=== PATIENT | male | born 1940 | race Caucasian/White ===

== ENCOUNTER 2016-07-08 06:06 | Inpatient (IN) | payer OTHER ==
[2016-06-25 10:14] LABS: WBC (NOT ORDERED) (RFLEX) 0 (0-5)
[2016-06-25 10:49] LABS: BASOPHILS 1.5 %; BASOPHILS ABSOLUTE 0.07 10/3/uL (0.0-0.16); EOSINOPHILS 4.2 %; HEMATOCRIT 46.2 % (40.0-51.0); HEMOGLOBIN 15.4 g/dL (13.6-17.8); LYMPHOCYTES 23.3 %; MEAN CORPUS HGB CONC 33.3 g/dL (32.0-36.0); MEAN CORPUSCULAR HEMOGLOB 30.7 pg (26.0-34.0); MEAN PLATELET VOLUME 9.5 fL (9.2-13.0); MONOCYTES 10.6 %; NEUTROPHILS 60.4 %; NEUTROPHILS ABSOLUTE 2.86 10/3/uL (2.02-8.40); PLATELET COUNT 202 10/3/uL (150-400); RBC DISTRIBUTION WIDTH 13.9 % (12.0-16.0); RED CELL COUNT 5.02 10/6/uL (4.7-6.1); WHITE BLOOD CELLS 4.7 10/3/uL (4.5-10.5)
[2016-06-25 10:51] LABS: MANUAL DIFF NO %
[2016-06-25 11:01] LABS: A/G RATIO 1.2 (0.7-1.9); ALBUMIN 3.9 G/DL (3.5-5.0); CALCIUM, SERUM 8.8 MG/DL (8.5-10.4); CHLORIDE, SERUM 110 MMOL/L (96-112); CO2 (CARBON DIOXIDE) 29 MMOL/L (24-34); CREATININE 0.92 MG/DL (0.70-1.30); GFR AFRICAN AMERICAN 95 ML/MIN (>=60); GFR NON AFRICAN AMERICAN 82 ML/MIN (>=60); GLOBULIN 3.2 G/DL (2.5-4.1); POTASSIUM, SERUM 4.1 MMOL/L (3.5-5.3); SGOT(AST) 14 U/L (5-40); SGPT(ALT) 26 U/L (5-65); SODIUM, SERUM 145 MMOL/L (135-148); TOTAL PROTEIN 7.1 G/DL (6.0-8.5)
[2016-06-25 11:03] LABS: ALKALINE PHOSPHATASE 78 U/L (45-117); BUN (BLOOD UREA NITROGEN) 13 MG/DL (6-23); GLUCOSE, SERUM 91 MG/DL (60-99); INTERNATIONAL NORMAL RATI 1.1 UNITS (-); PARTIAL THROMBO TIME 27.4 SEC (22.5-37.2); PROTIME (NOT ORD) 13.9 SEC (12.0-14.5); TOTAL BILIRUBIN 0.8 MG/DL (0-1.2)
[2016-06-25 12:06] LABS: ASCORBIC ACID (UR NOT ORDER) NEG (NEG); BILIRUBIN, URINE NEGATIVE (NEG); KETONE, URINE NEGATIVE (NEG); LEUKOCYTE ESTERASE(NOT OR NEG (NEG)
--- NOTE | ~2016-07-08 | OP ---
Record Of Operation [facility] [address] [place]. 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 PROCEDURE PERFORMED: Right total knee arthroplasty. SUPERVISING LAW ENFORCEMENT ANALYST: Boaz Jordan. ANESTHESIA: Spinal with sedation, adductor block, and local infusion. PROCEDURE IN DETAIL: The patient is clearly identified and after obtaining informed consent is brought to the operating room at [facility] where anesthesia is induced uneventfully with excellent anesthetic effect. Subsequently, the affected extremity is prepped and draped in the usual manner and after an appropriate time-out procedure is performed, via an anterior approach, the skin is divided, fascial planes are elevated, paramedial approach to the knee is made. The structures themselves are elevated, excised, and debrided were appropriate, whereupon the patella is carefully everted, calipered, and planed and with the size and type being reproduced with the appropriate-size patella, trialing is performed successfully. At this point, the patella is then carefully subluxed laterally, the knee is flexed, osteophytes around the distal femur are removed, followed by the ACL being divided. The femoral canal is entered and vented, at which point with the intramedullary guide being utilized, the distal femoral cut is made. At this point, the tibia is carefully subluxed anteriorly. The surrounding soft tissues to the tibia are protected with Hohmann retractors, at which point the extramedullary guide is utilized to perform the proximal tibial cut and after cleansing these tissues, the spacer block is utilized in extension to confirm excellent extension, stability, and alignment. The guiding pins are then all carefully removed and the knee is then flexed. The femur is sized, whereupon the anterior, posterior, chamfer, and box cuts are made appropriately. The proximal tibia then is assessed. Osteophytes and surrounding soft tissues are removed and debrided were appropriate. Posterior osteophytes are removed as well. The menisci are excised and thus concluding trialings performed successfully. The proximal tibia then is carefully prepared utilizing proper cement technique. The permanent implants have been carefully placed into position uneventfully where upon copious irrigations performed, the permanent tibial implants applied and thus concluded. The joint was then copiously irrigated, at which point it is closed carefully in layers including Vicryl and tonya for the skin, at which point Aquacel sterile dressing is applied. The patient is allowed to awaken and is transferred to the bed and subsequently to the recovery room in stable condition having tolerated the procedure well. The hardware that is present due to the patient's previously placed ACL reconstruction hardware is not visible through the surgery and does not contact the hardware of the implant, therefore it is not removed. Record Of Operation [facility] [id number] [facility] [place]. [address] NAME: MICHAEL CLARK : 42 STATUS : ADM IN [facility]#: [id number] AGE: 76 ADM/REG DATE : 07/08/16 MR#: [id number] REPORT SERV DATE: 07/08/16 DICTATED BY: CHRISTOS RUBY DATE: 07/08/16 REPORT STATUS : Draft TRANSCRIBED BY: MODL DATE: 07/08/16 ESTIMATED BLOOD LOSS: 50 FLUIDS: 1000. TOURNIQUET TIME: 40 minutes. PATHOLOGY: Sent specimen. MICROBIOLOGY: None. COMPLICATIONS: None. SPONGE AND NEEDLE COUNT: Reportedly correct. ANTIBIOTICS: Administered appropriately preoperatively and ordered to be discontinued within 23 hours. IMPLANTS: Attune knee by DePuy, femur 7, tibia 8, patella 41, polyethylene 7/10. KILLIAN/CEDRICKL Christos Ruby M.D. / [id number] CC: Christos Ruby M.D.
--- NOTE | ~2016-07-08 | DS ---
Discharge Summary [facility] [address] [place]. [address] NAME: MICHAEL CLARK : 44 STATUS : DIS IN PAT#: [id number] AGE: 76 ADM/REG DATE : 07/08/16 MR#: [id number] REPORT SERV DATE: 07/22/16 DICTATED BY: CHRISTOS RUBY DATE: 07/21/16 REPORT STATUS : Draft TRANSCRIBED BY: JOSÉ MIGUEL DATE: 07/21/16 Data Collection from hospitalization DISCHARGE DIAGNOSES: 1. 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 2. Hypertension. 3. Coronary artery disease. 4. Obstructive sleep apnea. 5. Depression. 6. Hypercholesterolemia. 7. History of myocardial infarction. CONSULTATIONS: None. PROCEDURES PERFORMED: Right total knee arthroplasty, 07/08/2016. PATHOLOGY: Bone and soft tissue, right knee arthroplasty-changes consistent with degenerative joint disease. Chronic mildly nonproliferative synovitis, nonspecific (see comments). DISCHARGE MEDICATIONS: Norvasc 10 mg every evening, aspirin 81 mg every evening, Lipitor 20 mg at bedtime, Wellbutrin SR 150 mg twice a day, Coreg 6.25 mg twice a day, vitamin B12 1000 mcg sublingually daily, Colace 100 mg twice a day, Pepcid 20 mg twice a day, ferrous sulfate 300 mg with breakfast and supper, Proscar 5 mg every morning, Zyrtec 10 mg every morning, Singulair 10 mg every morning, Theragran tablets one tablet with breakfast, niacin 500 mg with meals, Flomax 0.4 mg every evening, Coumadin as instructed, Tylenol 650 mg orally or rectally every four hours as needed, Mylanta 30 mL as needed, Dulcolax 15 mg as needed, Benadryl 25 mg every six hours as needed, milk of magnesia 30 mL as needed, Zofran 4 mg every four hours as needed, MiraLAX powder one packet twice a day as needed, Phenergan 25 mg every four hours as needed, Roxicodone 5-10 mg every four hours as needed, probiotic daily as instructed, Cialis 5 mg daily, Benadryl 25 mg every four hours as needed for rash or itching. CONDITION AT DISCHARGE: Stable. DISPOSITION: The patient was discharged to [facility] on a regular diet with activities as instructed. He would follow up with me, 07/21/2016. HOSPITAL COURSE: This is a 76-year-old man, who had a long history of right knee pain. The patient has right knee arthritis with valgus and retained hardware. Treatment options were discussed and it was elected to proceed with surgical intervention. He was admitted to the hospital at this time for further evaluation and treatment. Upon admission, he was taken to the operating room, where he underwent the above-mentioned procedure. He tolerated this well and there were no complications. On postop day #1, the patient said he would like to go to rehab for a week or so. YAO hose were in place. Singulair was being given for his history of bronchitis. Over the next couple of days, he continued to progress. He was up sitting in a bedside chair. He was having bowel Discharge Summary [address] [place]. [address] NAME: MICHAEL CLARK : 44 STATUS : DIS IN PAT#: [id number] AGE: 76 ADM/REG DATE : 07/08/16 MR#: [id number] REPORT SERV DATE: 07/22/16 DICTATED BY: CHRISTOS RUBY DATE: 07/21/16 REPORT STATUS : Draft TRANSCRIBED BY: JOSÉ MIGUEL DATE: 07/21/16 movements. We encouraged him to mobilize with Physical Therapy. He had no issues urinating. Discharge planning was performed. He complained of some left shoulder pain when raising up in bed. He was evaluated by Occupational Therapy. On 07/13/2016, he complained of having a rash on his bilateral lower extremities. The patient had developed a bilateral lower extremity rash. Discharge instructions were given. Due to his improved and stable condition, he was discharged to [facility] with the above- stated instructions. Information collected by: Denita Gil I submit the above information as my discharge summary. TG/JOSÉ MIGUEL Christos Ruby M.D. / [id number] CC: George Gates M.D. [facility]
[~2016-07-08 06:06] MED LIST: ALEVE220 MG PO; ASAB PO; BEN25 PO; CIALIS10 MG PO; CIALIS5 MG PO; COREG6 PO; DSS PO; FISH OIL; FLOMAX4 PO; GLUCCHONDR PO; GLUCOSAMINEPO; LIPITOR20 PO; LIPITOR40 PO; LOP25 PO; NIACIN 500 PO; NITROQUICK0.4 MG SL; NORV10 PO; NORV5 PO; PCET PO; PROBIOTIC; PROSCAR5 PO; SINGULAIR1 PO; VIT D 3; VIT E; VITAMIN B-121000 MC1 SL; VITC500 PO; WELLSR150 PO; ZYRTEC ALLGY10 MG PO
[2016-07-09 05:01] LABS: INTERNATIONAL NORMAL RATI 1.1 UNITS (-); PROTIME (NOT ORD) 14.4 SEC (12.0-14.5)
[2016-07-09 05:10] LABS: HEMOGLOBIN 12.6 g/dL (13.6-17.8)
[2016-07-09 05:12] LABS: CALCIUM, SERUM 7.9 MG/DL (8.5-10.4); CHLORIDE, SERUM 108 MMOL/L (96-112); CO2 (CARBON DIOXIDE) 25 MMOL/L (24-34); CREATININE 0.87 MG/DL (0.70-1.30); GFR AFRICAN AMERICAN 99 ML/MIN (>=60); GFR NON AFRICAN AMERICAN 85 ML/MIN (>=60); GLUCOSE, SERUM 105 MG/DL (60-99); POTASSIUM, SERUM 3.8 MMOL/L (3.5-5.3); SODIUM, SERUM 143 MMOL/L (135-148)
[2016-07-09 05:15] LABS: HEMATOCRIT 37.7 % (40.0-51.0)
[2016-07-09 05:22] LABS: BUN (BLOOD UREA NITROGEN) 8 MG/DL (6-23)
[2016-07-10 07:33] LABS: HEMATOCRIT 36.5 % (40.0-51.0); HEMOGLOBIN 11.9 g/dL (13.6-17.8)
[2016-07-10 07:46] LABS: INTERNATIONAL NORMAL RATI 1.3 UNITS (-); PROTIME (NOT ORD) 15.6 SEC (12.0-14.5)
[2016-07-11 05:29] LABS: HEMATOCRIT 37.7 % (40.0-51.0); HEMOGLOBIN 12.3 g/dL (13.6-17.8)
[2016-07-11 05:39] LABS: INTERNATIONAL NORMAL RATI 1.5 UNITS (-); PROTIME (NOT ORD) 17.7 SEC (12.0-14.5)
[2016-07-12 04:07] LABS: INTERNATIONAL NORMAL RATI 1.8 UNITS (-)
[2016-07-12 04:09] LABS: PROTIME (NOT ORD) 20.7 SEC (12.0-14.5)
[2016-07-13 04:15] LABS: INTERNATIONAL NORMAL RATI 2.3 UNITS (-)
[2016-07-13 04:16] LABS: PROTIME (NOT ORD) 25.4 SEC (12.0-14.5)
== END 2016-07-13 16:24 | DRG 470 ==
LOC: SDC/OF 06:06 → 3SO 12:29
PROVIDERS: Orthopaedic Surgery
PROC: 3E0T3CZ (ICD-10-PCS; 2016-07-08)
PROC: 0SRC0J9 Replacement of Right Knee Joint with Synthetic Substitute, Cemented, Open Approach (ICD-10-PCS; principal; 2016-07-08 07:45)
DX: M17.11 Unilateral primary osteoarthritis, right knee (principal); J44.9 Chronic obstructive pulmonary disease, unspecified; I10 Essential (primary) hypertension; G47.33 Obstructive sleep apnea (adult) (pediatric); I25.10 Atherosclerotic heart disease of native coronary artery without angina pectoris; E78.5 Hyperlipidemia, unspecified; Z95.1 Presence of aortocoronary bypass graft
CPT/HCPCS: 36415; 71020; 73030-LT; 80048; 80053; 81001; 85014; 85018; 85025; 85610; 85730; 86850; 86900; 86901; 87641; 88305; 88311; 93005; 97110-GP; 97116-GP; 97161-GP; 97166-GO; 97530-GP; A9270-GY; C1776; J0690; J1885; J2250; J2274; J2405; J2795; J3010